=== PATIENT | male | born 1995 ===

== ENCOUNTER 2020-09-10 10:44 | Outpatient (REF) | payer MEDICARE, MEDICAID, SELFPAY | END 2020-09-10 10:45 | disposition home or self-care (01) | LOC: HO.LAB 10:44 | PROVIDERS: PCP Family Medicine; Visit Provider Internal Medicine | DX: Z20.822 Contact with and (suspected) exposure to COVID-19 (principal) | CPT/HCPCS: 36415; C9803; U0003; U0005 ==

== ENCOUNTER 2020-09-20 14:49 | Outpatient (REF) | payer MEDICARE, MEDICAID, SELFPAY | END 2020-09-20 14:50 | disposition home or self-care (01) | LOC: HO.LAB 14:49 | PROVIDERS: Visit Provider Internal Medicine | DX: Z20.822 Contact with and (suspected) exposure to COVID-19 (principal) | CPT/HCPCS: 36415; C9803; U0003; U0005 ==

== ENCOUNTER 2021-01-29 08:16 | Outpatient (REF) | payer MEDICARE, MEDICAID, SELFPAY | END 2021-01-29 08:17 | disposition home or self-care (01) | LOC: HO.LAB 08:16 | PROVIDERS: PCP Family Medicine; Visit Provider Internal Medicine | DX: Z20.822 Contact with and (suspected) exposure to COVID-19 (principal) | CPT/HCPCS: C9803; U0003; U0005 ==

== ENCOUNTER 2024-08-24 08:25 | Emergency (ER) | payer OTHER, SELFPAY ==
--- NOTE | ~2024-08-24 | US_ITS ---
EXAMINATION: US ABDOMEN LIMITED CLINICAL INFORMATION: [Upper Abdominal pain. Cirrhosis.. COMPARISON: None available. TECHNIQUE: Real-time imaging of the right upper quadrant abdominal viscera using grayscale and color Doppler technique. FINDINGS: PANCREAS: No peripancreatic fluid collections. LIVER: Liver measures 17 cm. Increased echotexture. No gross solid or cystic lesion identified by the receiving barn custodian. No intrahepatic biliary ductal dilatation. GALLBLADDER: Contracted. No pericholecystic fluid collection or gallbladder wall thickening. COMMON BILE DUCT: 2 mm diameter. RIGHT KIDNEY: 11 cm. Normal echotexture. Normal renal cortical thickness. No hydronephrosis. No gross solid or cystic lesion. Normal flow on color Doppler interrogation of the renal hilum.. FREE FLUID: None. US/US abdomen limited IMPRESSION: No cholelithiasis. Hepatomegaly and steatosis. Hepatocellular disease/cirrhosis cannot be excluded. No ascites. No hydronephrosis, right kidney. Electronically signed by: Romeo Uribe MD 08/24/2024 12:14 PM [facility]
[2024-08-24 08:32] VITALS: BP 112/79; PULSE 72; RESP 16; TEMP 36.6; O2SAT 98; BMI 29.9
[2024-08-24 09:01] LABS: MANUAL DIFF FLAG NO
[2024-08-24 09:02] LABS: Basophils Percent Auto 0.3 % (0-2); Eosinophils Absolute Auto 0.3 X10*3/uL (0.0-0.4); Eosinophils Percent Auto 2.5 % (0-4); Hematocrit 49.5 % (42.0-52.0); Hemoglobin 17.2 g/dl (14.0-18.0); Imm Gran Abs Auto 0.04 X10*3/uL (0.00-0.03); Imm Gran Pct Auto 0.3 % (0.0-0.4); Lymphocytes Absolute Auto 1.7 X10*3/uL (1.2-4.9); Lymphocytes Percent Auto 14.7 % (20-40); Mean Corpuscular HGB Conc 34.7 g/dl (31.0-36.0); Mean Corpuscular Hemoglobin 29.1 pg (27.0-33.0); Mean Corpuscular Volume 83.6 fL (80.0-98.0); Mean Platelet Volume 9.8 fL (9.4-12.4); Monocytes Absolute Auto 0.8 X10*3/uL (0.1-1.2); Monocytes Percent Auto 6.6 % (2-11); Neutrophils Absolute Auto 8.9 x10*3/uL (2.0-8.3); Neutrophils Percent Auto 75.6 % (45-73); Platelet Count 263 X10*3/uL (160-400); Red Blood Count 5.92 X10*6/uL (4.60-5.80); Red Cell Distribution Width 12.2 % (11.0-16.0); White Blood Count 11.7 X10*3/uL (4.8-10.8)
[2024-08-24 09:16] LABS: Alanine Aminotransferase 105 U/L (0-40); Albumin Level 4.2 g/dL (3.5-5.0); Alkaline Phosphatase 130 U/L (39-117); Anion Gap 10 (12-20); Aspartate Amino Transferase 47 U/L (5-37); Bilirubin Direct 0.2 mg/dL (0.0-0.5); Bilirubin Total 0.7 mg/dL (0.0-1.0); Blood Urea Nitrogen 9 mg/dL (9-16); Calcium 8.6 mg/dL (8.4-10.2); Carbon Dioxide 25 mmol/L (22-29); Chloride 110 mmol/L (96-108); Creatinine Clr Calc Pharmacy 185.4; Estimated Glomerular Filt Rate > 60; Glucose Random 125 mg/dL (60-115); Lipase 20 U/L (8-78); Potassium 4.1 mmol/L (3.3-5.1); Sodium 141 mmol/L (135-145); Total Protein 6.8 g/dL (6.5-8.0)
--- NOTE | 2024-08-24 10:51 | ED.ABDPAIN ---
HPI - Abdominal Pain General Chief Complaint: Abdominal Pain Stated Complaint: Abd pain, vomiting Time Seen by Provider: 08/24/24 10:50 Source: patient Mode of arrival: ambulatory Limitations: no limitations History of Present Illness ED Provider: French Griffin PA-C HPI narrative: 28 yo male history of fatty liver, reported history of liver cirrhosis, anxiety who presents to the ER for evaluation of upper abdominal pain along with recurrent diarrhea and nonbloody vomiting x1. Patient reports symptoms started. He denies any blood in his stool. He had frequent loose bowel movements. No recent travel. He has not been on antibiotics recently. 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 He denies being on any medications for his liver. He reports the pain in his abdomen comes and goes. Pain is cramping in nature. No known sick contacts. No fever or chills. No urinary symptoms. MD elicited complaint: abdominal pain and other (Nausea, vomiting, diarrhea) Pertinent past history: other (Cirrhosis) Onset (ago): hour(s) Pain Consistency: intermittent Location: epigastric Severity: moderate Quality: cramping Radiation: none Migration to: no migration Exacerbating factors: eating Relieving factors: nothing Associated symptoms: nausea, vomiting and diarrhea Related Data Previous Rx's ?Medication ?Instructions ?Recorded ondansetron 4 mg disintegrating 4 mg PO Q8H PRN nausea and 08/24/24 tablet vomiting #7 tabs Allergies Allergy/AdvReac Type Severity Reaction Status Date / Time No Known Allergies Allergy Verified 08/24/24 08:34 [No Known Allergies*] Review of Systems Review of Systems Yes all other systems are reviewed and are negative REPLACED BY [facility] Social History Social History Unable to assess alcohol history related to: Unknown Physical Exam ED Vital Signs: Vital Signs - 24 hr 08/24/24 08:32 08/24/24 14:16 Temperature 97.8 F 98.0 F Pulse Rate 72 80 Respiratory Rate 16 18 Blood Pressure 112/79 138/72 Pulse Oximetry 98 96 Oxygen Delivery Method Room Air Room Air BMI result Body Mass Index 29.9 Appearance: Alert. Oriented X3. No acute distress. Head: normocephalic, atraumatic. Eyes: Pupils equal, round and reactive to light. ENT: Pharynx normal. No tonsillar swelling or exudate. Neck: Normal inspection. Neck supple. CVS: Normal heart rate and rhythm. Pulses normal. Respiratory: No respiratory distress. Breath sounds normal. Abdomen: Soft with mild epigastric tenderness, no guarding or rebound. +BS x4 Skin: Skin warm and dry. Normal skin color. Normal skin turgor. No rashes. Extremities: No lower extremity edema. No joint swelling. Neuro/psych: Oriented X 3. No motor deficit. No sensory deficit. CN II-XII intact. Normal speech and cognition. Medical Decision Making Medical Decision Making [facility] Narrative: 20-year-old male with history of cirrhosis due to fatty liver presents to the ER for evaluation of upper abdominal pain, nausea, vomiting, diarrhea that started at 01:00. No episodes of vomiting or stool output here. Stool studies have been ordered but unable to be collected. His lab work is reassuring with very minimal leukocytosis of 11.7. H and H is stable. LFTs are elevated and we have no baseline here. Abd U/S done showing no obstructive biliary process. hepatic steatosis noted. Patient given GI cocktail and is tolerating PO. no BMs here to send for studies. Most likely viral gastroenteritis. discussed dx and tx. stable for d/c home. Differential Diagnosis Differential Diagnoses: The differential diagnosis associated with the presentation includes Gastroenteritis, pancreatitis, cholecystitis, dehydration, cholangitis, colitis Admission/Observation Consideration of admission/observation: Escalation of care including admission/observation considered Lab Data [facility] Lab Attestation statement: I reviewed the patient's lab results. mild leukocytosis, mild hyperglycemia and elevation of LFTs 08/24/24 08:54 08/24/24 08:54 Labs: Lab Results 08/24/24 08/24/24 Range/Units 08:54 10:55 WBC 11.7 H (4.8-10.8) X10*3/uL RBC 5.92 H (4.60-5.80) X10*6/uL Hgb 17.2 (14.0-18.0) g/dl Hct 49.5 (42.0-52.0) % MCV 83.6 (80.0-98.0) fL MCH 29.1 (27.0-33.0) pg MCHC 34.7 (31.0-36.0) g/dl RDW 12.2 (11.0-16.0) % Plt Count 263 (160-400) X10*3/uL MPV 9.8 (9.4-12.4) fL Immature Gran % (Auto) 0.3 (0.0-0.4) % Neut % (Auto) 75.6 H (45-73) % Lymph % (Auto) 14.7 L (20-40) % [place] % (Auto) 6.6 (2-11) % Eos % (Auto) 2.5 (0-4) % Baso % (Auto) 0.3 (0-2) % Lymph # (Auto) 1.7 (1.2-4.9) X10*3/uL [place] # (Auto) 0.8 (0.1-1.2) X10*3/uL Eos # (Auto) 0.3 (0.0-0.4) X10*3/uL Baso # (Auto) 0.0 (0.0-0.2) X10*3/uL Abs Immat Gran (auto) 0.04 H (0.00-0.03) X10*3/uL Absolute Neuts (auto) 8.9 H (2.0-8.3) x10*3/uL Absolute Nucleated RBC 0.000 (0.0-0.012) X10*3/uL Nucleated RBC % (auto) 0.0 (0.0-0.2) /100WBC Sodium 141 (135-145) mmol/L Potassium 4.1 (3.3-5.1) mmol/L Chloride 110 H (96-108) mmol/L Carbon Dioxide 25 (22-29) mmol/L Anion Gap 10 L (12-20) BUN 9 (9-16) mg/dL Creatinine 0.79 (0.5-1.4) mg/dL Estim Creat Clear Calc 185.4 Estimated GFR > 60 Random Glucose 125 H (60-115) mg/dL Calcium 8.6 (8.4-10.2) mg/dL Total Bilirubin 0.7 (0.0-1.0) mg/dL Direct Bilirubin 0.2 (0.0-0.5) mg/dL AST 47 H (5-37) U/L ALT 105 H (0-40) U/L Alkaline Phosphatase 130 H (39-117) U/L Total Protein 6.8 (6.5-8.0) g/dL Albumin 4.2 (3.5-5.0) g/dL Lipase 20 (8-78) U/L Urine Color Yellow Urine Appearance Clear Urine pH 5.5 (5.0-9.0) Ur Specific [place] 1.025 (1.005-1.025) Urine Protein Negative (Neg-Trace) mg/dL Urine Glucose (UA) Negative (Negative) mg/dL Urine Ketones Negative (Negative) mg/dL Urine Blood Negative (Negative) Urine Nitrite Negative (Negative) Ur Leukocyte Esterase Negative (Negative) Independent Interpretation I performed an independent interpretation of an: Ultrasound Interpretation: no gallstones seen, agree w/ radiology read Radiology Impression Discussion of test interpretation with radiology: I have reviewed the radiologist's reading. Prescription Management I considered prescription management with: Pain Medication Chronic Conditions Patient?s care impacted by: Other (liver cirrhosis) Medications Administered Discontinued Medications Generic Name Dose Route Start Last Admin Trade Name Freq PRN Reason Stop Dose Admin Al Hydroxide/Mg Hydroxide 30 ml 08/24/24 11:23 08/24/24 12:03 Magnesium Hydrox/Alum Hydrox 30 Ml Oral.Susp PO 08/24/24 11:24 30 ml ONCE ONE Administration Belladonna Alkaloids/Phenobarbital 10 ml 08/24/24 11:23 08/24/24 12:03 Phenobarb/Hyoscy/Atropine/Scop 10 Ml Elixir PO 08/24/24 11:24 10 ml ONCE ONE Administration Lidocaine HCl 15 ml 08/24/24 11:23 08/24/24 12:03 Lidocaine Hcl Viscous 2 % 15 Ml Solution MUCOUS MEM 08/24/24 11:24 15 ml ONCE ONE Administration Critical Care Time Critical Care Time Critical Care Time: No Discharge Plan Discharge Clinical Impression: Gastroenteritis Patient Disposition: Home, Self-Care Instructions: Gastroenteritis (DC) Additional Instructions: You lab workup today was unremarkable, aside from elevated liver enzymes which is likely due to your liver disease. Ultrasound showed fatty liver. You most likely have a viral GI bug also known as gastroenteritis. Treatment is supportive care, symptoms usually resolve on their own in 48-72 hours. Recommend rest and plenty of oral hydration. Stick to a bland diet like soup and toast while you are not feeling well. Take the prescribed medication as needed for nausea. Recommend over the counter Pepto Bismol or Imodium for upset stomach and diarrhea. Follow up with your doctor as needed. If you develop new or worsening symptoms call 911 or come back to the ER for further evaluation. Prescriptions: New ondansetron 4 mg tablet,disintegrating 4 mg PO Q8H PRN (Reason: nausea and vomiting) Qty: 7 0RF Stand Alone Forms: Work/School Release Interventions: ED Discharge Assessment Last Done: 08/24/24 14:16 Discharge Date/Time: 08/24/24 14:18 Print Language: Qatari
[2024-08-24 11:07] LABS: Appearance Urine Clear; Color Urine Yellow; Glucose Urine UA Negative (Negative); Leukocyte Esterase Urine Negative (Negative); Nitrite Urine Negative (Negative); PH 5.5 (5.0-9.0); Specific Gravity - Urine 1.025 (1.005-1.025); Urine Blood Negative (Negative); Urine Ketones Negative (Negative); Urine Protein Negative (Neg-Trace)
[2024-08-24] MEDS: Magnesium Hydrox/Alum Hydrox 30 ML ORAL.SUSP PO (12:03)
[2024-08-24] MEDS: Lidocaine HCl Viscous 2 % 15 ML SOLUTION MUCOUS MEM (12:03)
[2024-08-24] MEDS: PHENobarb/Hyoscy/Atropine/Scop 10 ML ELIXIR PO (12:03)
[2024-08-24 14:16] VITALS: BP 138/72; PULSE 80; RESP 18; TEMP 36.7; O2SAT 96
== END 2024-08-24 14:18 | disposition home or self-care (01) ==
PROVIDERS: Emergency Provider Student in an Organized Health Care Education/Training Program
DX: K52.9 Noninfective gastroenteritis and colitis, unspecified (principal); R10.2 Pelvic and perineal pain; R11.2 Nausea with vomiting, unspecified; Z79.899 Other long term (current) drug therapy
CPT/HCPCS: 36415; 76705; 80048; 80076; 81003; 83690; 85025; 99284

== ENCOUNTER → 2024-08-24 11:23 | Outpatient (BNV) | payer OTHER, SELFPAY | PROVIDERS: Emergency Provider Student in an Organized Health Care Education/Training Program; Visit Provider Radiology Diagnostic Radiology | DX: K76.0 Fatty (change of) liver, not elsewhere classified (principal); R16.0 Hepatomegaly, not elsewhere classified | CPT/HCPCS: 76705 ==

== ENCOUNTER 2024-09-06 05:41 | Emergency (ER) | payer OTHER, SELFPAY ==
[2024-09-06 05:43] VITALS: BP 123/87; PULSE 78; RESP 17; TEMP 36.9; O2SAT 97; BMI 29.2
[2024-09-06 05:53] VITALS: BP 150/96; PULSE 77; RESP 16; TEMP 36.4; O2SAT 97
--- OUTSIDE RECORDS SUMMARY | 2024-09-06 06:06 | XMS_ITS | Continuity of Care Document ---
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 No significant ankle joint OA X-rays of the right foot were previously interpreted demonstrating no fracture. Mild midfoot OA MRI of the right foot was previously interpreted demonstrating edema of the cuboid bone consistent with a stress injury. Possible hypointense fracture line on T2 and T1 images that does not cross the cortex. Lesser edema of the medial cuneiform and navicular bone also noted without fracture line seen. Not available 09/04/2024 10:07:44 Plan of Treatment Reminders Order Date Submit Date Provider Last Modified By Organization Details Last Modified Time Details Appointments Follow Up, 2024 09:30A Sushant MATOS DNP Not available Not available Not available Lab None recorded . Referral None recorded . Procedures None recorded . Surgeries None recorded . Imaging None recorded . Medication Orders None recorded . Patient TargetsNo targets recorded. Patient Instructions Encounter Date Encounter Id Patient Instructions Last Modified By Organization Details Last Modified Time 09/04/2024 [id number] Gradually wean o ut of boot over 1 week You can be full weightbearing No lower extremity exercise or high impact activity Follow-up in 4 weeks for a recheck Not available 09/04/2024 10:38:07 All of the patients questions were answered and they understand the plan of care. Thank you for allowing me to participate in the care of your patient. ? ? ?Please feel free to contact me with any questions regarding their care. Not available 09/04/2024 10:36:37 Reason for Referral None Reported. Problems Name Problem SNOMED Code Status Onset Date Resolution Date Notes Provider Name and Address Organization Details Recorded Time Joint pain in ankle and foot Completed 06/28/2013 Not Available [facility] 3 02:01:27 Acne 25325692 Active Not Available [facility] 3 03:34:36 Allergic rhinitis 91602815 Active Deejay Lizama MD [address] [place] [address], , [facility] 5 15:26:56 Asthma 402006592 Active Deejay Lizama MD [address] [place] [address], , [facility] 6 21:16:42 Constipa tion by outlet obstruct ion 70376688 Active Deejay Lizama MD [address] [place] [address], , [facility] 5 15:26:56 Shoulder joint pain 743406541 Active Sheyla ortiz, PT [address] [place], [place], , [facility] 6 10:59:58 Thoracic back pain 934238478 Active Sheyla ortiz, PT [address] [place], [place], , [facility] 6 10:59:58 Mild persiste nt asthma 339845389 Active 2022 Geno Louis PA-C [address] [place] [address], , [facility] 3 13:59:03 Prematur e infant 412015263 Active 2022 born very prematur e; ? in utero heart attack Geno Louis PA-C [address] [place] [address], , [facility] 3 14:12:00 Liver enzymes level above referenc e range 288190148 Active 2022 Geno Louis PA-C [address] [place] [address], , [facility] 3 14:14:42 Hepatome raul 24544594 Active 2022 Geno Louis PA-C [address] [place] [address], , [facility] 3 11:21:19 Serum ferritin above referenc e range 400210302 Active 2022 Geno Louis PA-C [address] [place] [address], , [facility] 3 11:21:20 Steatosi s of liver 420442855 Active 2022 Geno Louis PA-C [address] [place] [address], , [facility] 3 11:21:22 Non-alco holic fatty liver disease Active 2023 Geno Louis PA-C [address] [place] [address], , [facility] 4 18:32:07 Hepatic fibrosis 94370220 Active 2023 Geno Louis PA-C [address] [place] [address], , [facility] 4 18:32:10 Chronic ankle pain 36596009479 109 Active 2023 Geno Louis PA-C [address] [place] [address], , [facility] 4 18:32:15 Stress fracture of right foot 34215681237 751169 Active 2024 per sports medicine consult notes RANDALL MATOS DNP [address] [place] [address], , [facility] 5 14:02:48 Problem Notes None recorded. Procedures Surgical History Date Name Laterality Status Provider Name and Address Organization Details Recorded Time 05/30/20 67197: Manual Therapy completed MANPREET CAMPBELL, PT, DPT [address] [place], [address], [facility] 05/30/2024 13:51:09 05/30/20 Treatment and Advice completed MANPREET CAMPBELL, PT, DPT [address] [place], [address], [facility] 05/30/2024 12:53:15 05/10/20 13946: Therapeutic Exercise completed MANPREET CAMPBELL PT, DPT [address] [place], [address], [facility] 05/10/2024 11:05:38 05/10/20 Neuromuscular re-education completed MANPREET CAMPBELL PT, DPT [address] [place], [address], [facility] 05/10/2024 11:05:22 05/10/20 Treatment and Advice completed MANPREET CAMPBELL, PT, DPT [address] [place], [address], [facility] 05/10/2024 10:26:17 05/08/20 Medicare Wellness Visit completed Cecilia Peres [facility] 05/08/2024 13:55:22 05/03/20 77045: Manual Therapy completed MANPREET CAMPBELL, PT, DPT [address] [place], [address], [facility] 05/03/2024 11:37:26 05/03/20 Treatment and Advice completed MANPREET CAMPBELL, PT, DPT [address] [place], [address], [facility] 05/03/2024 11:32:22 04/27/20 35418: Therapeutic Exercise completed MANPREET CAMPBELL, PT, DPT [address] [place], [address], [facility] 04/27/2024 12:17:15 04/27/20 99253: Neuromuscular Re-Education completed MANPREET CAMPBELL, PT, DPT [address] [place], [address], [facility] 04/27/2024 12:16:38 04/27/20 24 Treatment and Advice completed MANPREET CAMPBELL, PT, DPT [address] [place], [address], [facility] 04/27/2024 12:18:12 03/29/20 24 68446: Therapeutic Exercise completed MANPREET CAMPBELL PT, DPT [address] [place], [address], [facility] 03/29/2024 11:26:43 03/29/20 24 Treatment and Advice completed MANPREET CAMPBELL PT, DPT [address] [place], [address], [facility] 03/29/2024 10:41:49 03/03/20 21 Physical Activity Counselling completed Bonny Griggs PT [address] [place], [address], [facility] 03/03/2021 09:27:32 09/20/19 21 Asthma Control Test (12 + years old) completed Amanda Sandra MA [facility] 09/20/2020 13:43:42 09/03/19 21 Video Visit completed Ai Luis MA [facility] 09/03/2020 11:19:36 09/03/19 21 Asthma Control Test (12 + years old) completed Ai Luis MA [facility] 09/03/2020 11:19:33 03/25/20 20 prevention-cardio vascular risk reduction counseling completed Kath Sylvester LPN [facility] 03/25/2020 15:49:00 03/25/20 20 prevention-annual alcohol misuse screening completed Kath Sylvester LPN [facility] 03/25/2020 15:49:01 03/25/20 20 Asthma Control Test (12 + years old) completed Kath Sylvester LPN [facility] 03/25/2020 16:26:18 03/25/20 20 Medicare Annual Wellness Visit completed Kath Sylvester LPN [facility] 03/25/2020 15:49:00 06/16/20 19 Smoking cessation counseling completed Deejay Lizama MD [address] [place], [address], [facility] 06/16/2019 11:42:23 06/16/20 19 Carbon Monoxide Testing completed Karma Lr [facility] 06/16/2019 10:34:56 04/13/20 19 Refraction completed Andrea Monroy [facility] 04/13/2019 08:29:20 03/24/20 19 Asthma Control Test (12 + years old) completed Caitlyn Raza [facility] 03/24/2019 14:59:55 09/05/19 19 25819: Therapeutic Exercise completed Daniel Nova, PT [address] [place], [address], [facility] 09/05/2018 14:57:10 09/05/19 19 Treatment and Advice completed Daniel Nova, PT [address] [place], [address], [facility] 09/05/2018 14:56:03 08/22/19 19 00409: Therapeutic Exercise completed Daniel Nova, PT [address] [place], [address], [facility] 08/22/2018 14:59:41 08/22/19 19 Treatment and Advice completed Daniel Nova, PT [address] [place], [address], [facility] 08/22/2018 14:57:29 07/21/20 18 47037: Therapeutic Exercise completed Daniel Nova, PT [address] [place], [address], [facility] 07/23/2018 07:15:02 07/21/20 18 Treatment and Advice completed Daniel Nova, PT [address] [place], [address], [facility] 07/21/2018 12:32:54 07/14/20 18 Physical Activity Counselling completed Daniel Nova, PT [address] [place], [address], [facility] 07/14/2018 12:33:29 07/14/20 18 26457: PT Eval Low Complexity completed Daniel Nova, PT [address] [place], [address], [facility] 07/14/2018 12:33:29 07/14/20 18 Treatment and Advice completed Daniel Nova, PT [address] [place], [address], [facility] 07/14/2018 12:34:57 06/03/20 16 Refraction completed Za Manmaribell [facility] 06/03/2016 14:42:36 08/23/19 16 30209: PT Evaluation completed Sheyla Chao, PT [address] [place], [address], [facility] 08/23/2015 10:59:58 08/23/19 16 Treatment and Advice completed Sheyla Chao, PT [address] [place], [address], [facility] 08/23/2015 10:42:23 08/16/19 16 Asthma Control Test (12 + years old) completed Alysia Jaffe MA [facility] 08/16/2015 14:57:15 01/22/20 15 Wart completed Deejay Lizama MD [address] [place] [address], [address], [facility] 01/21/2015 18:25:04 05/30/20 12 Asthma Control Test (12 + years old) completed Deejay Lizama MD [address] [place] [address], [address], [facility] 05/30/2012 22:38:00 05/21/20 12 Nebulizer Tx completed Jaxon Jameson MD [address] [place] [address], [address], [facility] 05/22/2012 20:12:20 Imaging Results None recorded. Procedure Notes None recorded. Medical Equipment None Reported. Allergies No known drug allergies Medications Name Sig Start Date Stop Date Status Note LastModified by Organization Details LastModified Time cyclobenza mery 10 mg tablet TAKE 1 TABLET BY MOUTH EVERY DAY AT BEDTIME NEEDED 12/21 completed Not Available Not Available Not Available doxycyclin e hyclate 100 mg capsule TK 1 C PO Q 12 H FOR 7 DAYS 08/22 completed not taking 08/22/19 MS Not Available Not Available Not Available azithromyc in 250 mg tablet TAKE 2 TABLETS (500 MG) BY ORAL ROUTE ONCE DAILY FOR 1 DAY THEN 1 TABLET (250 MG) BY ORAL ROUTE ONCE DAILY FOR 4 DAYS 02/21 completed 09/20/20 SC not taking Not Available Not Available Not Available ibuprofen 800 mg tablet TAKE 1 TABLET BY MOUTH THREE TIMES DAILY WITH MEALS FOR 7 DAYS THEN 1 TABLET BY MOUTH THREE TIMES DAILY NEEDED 12/21 completed Not Available Not Available Not Available famotidine 40 mg tablet TAKE 1 TABLET BY MOUTH TWICE DAILY active Not Available Not Available No t Available prednisone 20 mg tablet Take 3 tablets po every day for 3 days then 2 tabs for 3 days then 1 tab daily for 3 days 2011 active Not Available Not Available Not Avai lable Doc-Q-Lace 100 mg capsule TAKE ONE CAPSULE BY MOUTH TWICE DAILY NEEDED 02/25 completed Not Available Not Available Not Available VoSol-HC 1 %-2 % ear drops Instill 2 drops 4 times a day by otic route for 7 days. 03/07 completed Not Available Not Available Not Available sumatripta n 50 mg tablet TAKE 1 TABLET BY MOUTH AT ONSET OF MIGRAINE NEEDED. MAY REPEAT DOSE IN 2 HOURS. NO MORE THAN 2 DOSES IN 24 HOUR PERIOD active Not Available Not Available No t Available benzonatat e 100 mg capsule TK 1 C PO TID PRN 06/16 completed Not Available Not Available Not Available cephalexin 500 mg capsule TAKE 1 CAPSULE BY MOUTH EVERY 8 HOURS FOR 5 DAYS 05/04 completed Not Available Not Available Not Available Cortispori n 3.5 mg/mL-10,0 00 unit/mL-1 % ear solution Instill 4 drops 3 times a day by otic route. 2013 active Not Available Not Available Not Avai lable bisacodyl 5 mg tablet,del ayed release Take 2 tablets every day by oral route as needed. 02/25 completed Not Available Not Available Not Available ibuprofen 600 mg tablet TK 1 T PO Q 6 H PRN P 04/23 completed Not Available Not Available Not Available fluticason e propionate 50 mcg/actuat ion nasal spray,susp ension SHAKE LIQUID AND USE 1 SPRAY IN EACH NOSTRIL EVERY DAY active Not Available Not Available No t Available Ventolin HFA 90 mcg/actuat ion aerosol inhaler INHALE 2 PUFFS BY MOUTH EVERY 4 TO 6 HOURS NEEDED FOR SHORTNES S OF BREATH active Not Available Not Available No t Available oxycodone 5 mg tablet TAKE 1 TABLET BY MOUTH EVERY 4 HOURS NEEDED FOR PAIN 05/04 completed Not Available Not Available Not Available Tessalon Perle 100 mg capsule Take 1 capsule 3 times a day by oral route as needed. 11/26 completed Not Available Not Available Not Available erythromyc in with ethanol 2 % topical gel Apply 1 applicat ion twice a day by topical route. 2012 active Not Available Not Available Not Avai lable Systane (propylene glycol) 0.4 %-0.3 % eye drops 1 drop into each eye 2-4 times per day 01/10 completed not taking 08/22/19 MS Not Available Not Available Not Available Flovent HFA 110 mcg/actuat ion aerosol inhaler INHALE 1 PUFF BY MOUTH TWICE DAILY active Not Available Not Available No t Available Rezdiffra 100 mg tablet 1 po QD active Not Available Not Available Not Available Vitals Date Recorded Body height Provider Name an d Address Organization Details Last Updated DateTime 09/04/2024 187.33 cm Eda Duckworth MA [facility] 09/04/2024 10:01:09 Date Recorded Systolic blood pressure Diastolic blood pressure Provider Name and Address Organization Details Last Updated DateTime 09/04/2024 114 mm[Hg] 64 mm[Hg] Eda Duckworth MA [facility] 09/04/2024 10:04:33 Social History Question Answer Notes LastModified by Organizat ion Details LastModified Time Tobacco Smoking Status [facility] 15:46:29 What Is Your Level Of Alcohol Consumption? Occasional Special Occasions 1-3 Drinks Information not available 04/28/2022 Do You Wear A Helmet When Biking? No [email or web address] Information not available 04/23/2021 What Is Your Level Of Caffeine Consumption? Moderate Energy Drinks Information not available 04/28/2022 How Much Tobacco Do You Chew? None Information not available 05/21/2012 Are You Currently Employed? Yes Information not available 04/28/2022 What Type Of Diet Are You Following? REGULAR [email or web address] Information not available 04/23/2021 Which Illicit Or Recreational Drugs Have You Used? Never Information not available 05/30/2012 Do You Or Have You Ever Used E-cigarettes Or Vape? Former User Of Electronic Cigarettes Information not available 03/24/2019 Education 12 Informat ion not available 03/12/2015 What Is The Highest Grade Or Level Of School You Have Completed Or The Highest Degree You Have Received? 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 No Information not available 04/28/2022 Are There Any Guns Present In Your Home? No Information not available 12/15/2012 Do You Use Insect Repellent Routinely? No Information not available 04/28/2022 Live Alone Or With Others? With Others Mother And Two Siblings Information not available 05/30/2012 Does The Patient Have Difficulty Speaking Slovenian? No Information not available 05/30/2012 Does The Patient Have Difficulty Reading Slovenian? No Information not available 05/30/2012 Patient Has Health Care Proxy Signed And In Chart Yes [email or web address] Information not available 03/27/2019 Marital Status Single Informatio n not available 05/21/2012 Mosquito Repellent Used Routinely No Information not available 05/30/2012 What Was The Date Of Your Most Recent Tobacco Screening? 05/08/2024 [email or web address] Information not available 05/08/2024 How Many Children Do You Have? 0 [email or web address] Information not available 11/26/2017 What Is Your Relationship Status? Other Partner But Doesnt Live Together [email or web address] Information not available 05/04/2023 Do You Use Your Seat Belt Or Car Seat Routinely? Yes [email or web address] Information not available 04/23/2021 Seat Belts Used Routinely Yes [email or web address] Information not available 03/25/2020 Are You Sexually Active? No Information not available 03/24/2019 Smoke Alarm In Home Yes Information not available 05/30/2012 Do You Have Smoke And Carbon Monoxide Detectors In Your Home? Yes Information not available 04/23/2021 Are You Passively Exposed To Smoke? No [email or web address] Information not available 04/23/2021 Do You Or Have You Ever Used Smokeless Tobacco? Never Used Smokeless Tobacco [email or web address] Information not available 06/16/2019 How Much Tobacco Do You Smoke? No [email or web address] Information not available 01/11/2020 What Types Of Sporting Activities Do You Participate In? Volleyball Information not available 03/24/2019 General Stress Level Medium Information not available 03/24/2019 Do You Use Any Illicit Or Recreational Drugs? No Information not available 04/28/2022 Do You Use Sunscreen Routinely? No Information not available 05/30/2012 Do You Or Have You Ever Used Any Other Forms Of Tobacco Or Nicotine? No Information not available 04/28/2022 How Many Days In The Past Year Have You Consumed 5 Or More Drinks? 0 Information not available 04/28/2022 Sex: Male Functional Status Question Answer Note LastModified by Organizat ion Details LastModified Time What is your exercise level? None recent back surgery [email or web address] Information not available 05/04/2023 Mental Status None recorded. Family History Relationship Description Onset Age of this Age Resolved Age Notes LastModified by Organization Details LastModified Time Paternal Grandmother Malignant neoplasm of liver [email or web address] Not available 2022 14:03:38 Mother Diabetes mellitus [email or web address] Not available 2022 14:03:56 Father Diabetes mellitus also grandp arents on both side [email or web address] Not available 05/04/2023 14:04:27 Father Transplantat ion of liver [email or web address] Not available 18:19:41 Medical History No medical history recorded. Immunizations Vaccine Type Date Status Note Provider Nam e and Address Organization Details Recorded Time Influenza, split virus, trivalent, preservative 2 completed Not Available [email or web address] 08/26/2019 02:28:48 Tdap 3 completed Not Available [facility] 08/26/2019 02:16:05 meningococcal MCV4P 3 completed Not Available [facility] 08/26/2019 02:15:00 HPV, quadrivalent 5 completed Not Available [facility] 08/26/2019 02:19:47 HPV9 5 completed Not Available [facility] 08/26/2019 02:20:10 HPV9 6 completed Not Available [facility] 08/26/2019 02:20:17 Influenza, split virus, quadrivalent, PF 6 completed Not Available [facility] 08/26/2019 02:29:50 Influenza, split virus, quadrivalent, PF 8 completed Not Available [facility] 08/26/2019 02:23:06 pneumococcal polysaccharide PPV23 9 completed Not Available [facility] 08/26/2019 02:37:59 Influenza, split virus, quadrivalent, PF 9 completed Not Available [facility] 08/26/2019 02:34:18 Hep B, adult 2 completed Ortiz Clay RN [facility], [facility] 03/31/2022 11:01:48 Hep B, adult 2 completed Geno Louis PA-C [address] [place] [address], [address], [facility] 04/28/2022 16:17:09 Td (adult), 2 Lf tetanus toxoid, preservative free, adsorbed 3 completed Geno Louis PA-C [address] [place] [address], [address], [facility] 05/04/2023 14:14:56 Influenza, split virus, quadrivalent, PF 3 completed Geno Louis PA-C [address] [place] [address], [address], [facility] 05/04/2023 14:14:56 COVID-19, mRNA, LNP-S, PF, 100 mcg/0.5mL dose or 50 mcg/0.25mL dose 1 completed Veronique Gustafson RMA null, [facility] 06/20/2024 16:43:14 COVID-19, mRNA, LNP-S, PF, 100 mcg/0.5mL dose or 50 mcg/0.25mL dose 1 completed Veronique Gustafson RMA null, [facility] 06/20/2024 16:43:14 Influenza, split virus, trivalent, PF 4 completed Geno Louis PA-C [address] [place] [address], [address], [facility] 05/09/2024 12:41:45 varicella 2 completed [facility] 16:43:14 MMR 2 completed Veronique Gustafson RMA null, [facility] 06/20/2024 16:43:14 MMR 2 completed Veronique Gustafson RMA null, [facility] 06/20/2024 16:43:14 varicella 2 completed Veronique Gustafson RMA null, [facility] 06/20/2024 16:43:14 COVID-19, mRNA, LNP-S, PF, 100 mcg/0.5mL dose or 50 mcg/0.25mL dose 1 completed [facility] 16:43:14 Past Encounters Encounter ID Performer Location Encounter Start Date Encounter Closed Date Diagnosis/Indication Diagnosis SNOMED-CT Code Diagnosis ICD10 Code Diagnosis Note [id number] Danis Leach MD Sports Medicine, [address] [address] 09/04/2024 09:50:50 09/04/2024 12:10:37 Pain in right foot [id number] 13064 M79.671 Niles is a 28-year-ol d male with right foot pain due to a stress fracture of the cuboid bone. He has been wearing a Cam walker boot for 4 weeks and has had a significan t reduction in his pain and symptoms. I have advised at this time that he can gradually wean out of the boot over the next week to full weightbear ing status. I have advised against any lower extremity exercise or impact activities . He will plan to follow up with me in 4 weeks for reevaluati on and will contact me if he develops any increasing pain before then. Stress fra cture of foot [id number] M84.374D Health Concerns Section Related Observation LastModified by Organization Detai ls LastModified Time None Recorded Concern Status LastModified by Organization Details LastModified Time None Recorded Payers Encounter Date Sequence Insurance Name Policy Number Policy Cherry Covered Member ID Cherry Member ID Guarantor Name 09/04/2024 1 [facility] - DOS ON OR AFTER 2022 - ONE CARE (MEDICARE REPLACEMENT/ADV ANTAGE - HMO) Niles Bryant [id number] Niles Bryant Notes Date Note Type Note Provider Name and Address Organization Details Recorded Time 09/04/2024 text/html Niles is a 28-year-old male who presents today for reevaluation of right foot pain. He was last seen via virtual visit on July 312023. Since then he has been wearing a Cam walker boot when weightbearing. Overall his foot is feeling significantly better with much less pain. He has no pain with walking in the boot. He has at the boot off for short periods of time at home and has not had discomfort with weightbearing. He no longer is having any night pain. Danis Leach MD [address] [place] [address], [phone], [facility] 09/04/2024 10:38:33
[2024-09-06 06:16] LABS: MANUAL DIFF FLAG NO
[2024-09-06 06:21] LABS: Basophils Absolute Auto 0.1 X10*3/uL (0.0-0.2); Basophils Percent Auto 0.6 % (0-2); Eosinophils Absolute Auto 0.5 X10*3/uL (0.0-0.4); Eosinophils Percent Auto 5.5 % (0-4); Hematocrit 47.9 % (42.0-52.0); Hemoglobin 16.9 g/dl (14.0-18.0); Imm Gran Abs Auto 0.02 X10*3/uL (0.00-0.03); Imm Gran Pct Auto 0.2 % (0.0-0.4); Lymphocytes Absolute Auto 2.4 X10*3/uL (1.2-4.9); Lymphocytes Percent Auto 27.7 % (20-40); Mean Corpuscular HGB Conc 35.3 g/dl (31.0-36.0); Mean Corpuscular Hemoglobin 29.4 pg (27.0-33.0); Mean Corpuscular Volume 83.3 fL (80.0-98.0); Mean Platelet Volume 9.9 fL (9.4-12.4); Monocytes Absolute Auto 0.9 X10*3/uL (0.1-1.2); Neutrophils Absolute Auto 4.9 x10*3/uL (2.0-8.3); Platelet Count 250 X10*3/uL (160-400); Red Blood Count 5.75 X10*6/uL (4.60-5.80); Red Cell Distribution Width 12.1 % (11.0-16.0); White Blood Count 8.7 X10*3/uL (4.8-10.8)
[2024-09-06 06:30] LABS: Alanine Aminotransferase 113 U/L (0-40); Albumin Level 4.3 g/dL (3.5-5.0); Alkaline Phosphatase 125 U/L (39-117); Anion Gap 11 (12-20); Aspartate Amino Transferase 57 U/L (5-37); Bilirubin Total 0.4 mg/dL (0.0-1.0); Blood Urea Nitrogen 9 mg/dL (9-16); Calcium 8.6 mg/dL (8.4-10.2); Carbon Dioxide 21 mmol/L (22-29); Chloride 112 mmol/L (96-108); Creatinine Clr Calc Pharmacy 193.2; Estimated Glomerular Filt Rate > 60; Glucose Random 112 mg/dL (60-115); Potassium 3.9 mmol/L (3.3-5.1); Sodium 140 mmol/L (135-145); Total Protein 7.2 g/dL (6.5-8.0)
--- NOTE | 2024-09-06 06:45 | ED_ITS ---
HPI - General Adult General Chief complaint: Nausea/Vomiting/Diarrhea Stated complaint: abd pain, vomiting, diar Time Seen by Provider: 09/06/24 06:40 Source: patient Mode of arrival: ambulatory Limitations: no limitations History of Present Illness ED Provider: Prachi Caraballo Pa-C HPI narrative: Patient is a 28 year old assigned male at with a history of GERD presenting to the emergency department today with nausea, vomiting, diarrhea, and epigastric pain. Patient states that starting yesterday he began to have nausea, vomiting, and diarrhea with some epigastric area burning. Patient denies any dizziness, lightheadedness, fever, chills, blurry vision, double vision, loss of vision, chest pain, difficulty breathing, shortness of breath, back pain, night sweats, pain with urination, increased urinary frequency, increased urinary urgency, blood in his urine or stool, syncope or a near syncopal episode, recent trauma or falls, bowel incontinence, bladder incontinence, or any other complaints at this time. Location: abdomen Relieving factors: none Exacerbating factors: none Associated symptoms: nausea/vomiting Treatments prior to arrival: none Related Data Previous Rx's ?Medication ?Instructions ?Recorded ondansetron 4 mg disintegrating 4 mg PO Q8H PRN nausea and 08/24/24 tablet vomiting #7 tabs Allergies Allergy/AdvReac Type Severity Reaction Status Date / Time No Known Allergies Allergy Verified 09/06/24 05:45 [No Known Allergies*] Review of Systems 2 Constitutional: Constitutional: Reports no additional constitutional complaints, Denies chills, Denies fever(s) and Denies night sweats Eyes: Eyes: Reports no additional eye complaints, Denies blurry vision, Denies change in vision, Denies diplopia, Denies eye discharge, Denies loss of vision and Denies eye pain ENT: Denies dizziness Cardiovascular: Cardiovascular: Reports no additional cardiovascular complaints, Denies chest pain, Denies lightheadedness, Denies Loss of Consciousness and Denies dyspnea Respiratory: Respiratory: Reports no additional respiratory complaints and Denies dyspnea Gastrointestinal: Gastrointestinal: Reports no additional gastrointestinal complaints, Reports abdominal pain, Denies melena, Denies hematochezia, Reports change in bowel habits, Reports change in stool character, Reports diarrhea, Reports nausea and Reports vomiting Genitourinary: Genitourinary: Reports no additional male genitourinary complaints, Denies hematuria, Denies oliguria, Denies difficulty urinating, Denies dysuria, Denies urinary frequency, Denies urinary hesitancy, Denies urinary incontinence and Denies urinary urgency Musculoskeletal: Musculoskeletal: Reports no additional musculoskeletal complaints, Denies numbness and Denies tingling Neurologic: Denies dizziness, Denies loss of vision, Denies numbness and Denies tingling Psychiatric: Psychiatric: Reports no additional psychiatric complaints Endocrine: Endocrine: Reports no additional endocrine complaints Hematologic/Lymphatic: Hematologic/Lymphatic: Reports no additional hematologic/lymphatic complaints Allergic/Immunologic: Allergic/Immunologic: Reports no additional allergic/immunologic complaints [facility], [facility] Past Medical History Attestation statement: The following information was validated with the patient. Source: old records reviewed and nursing notes reviewed Social History Social History Unable to assess alcohol history related to: Unknown Smoked in Last 30 Days: No Use of substances other than those prescribed or required for medical reasons: No Advance Directives: No Advance Directives Information Provided: Yes Do you have a plan to hurt others: No Plan Physical Exam ED Vital Signs: Vital Signs - 24 hr 09/06/24 05:43 09/06/24 05:53 09/06/24 08:00 Temperature 98.5 F 97.6 F 97.9 F Pulse Rate 78 77 68 Respiratory Rate 17 16 18 Blood Pressure 123/87 150/96 H 130/78 Pulse Oximetry 97 97 95 Oxygen Delivery Method Room Air Room Air Room Air 09/06/24 09:25 Temperature 97.9 F Pulse Rate 73 Respiratory Rate 18 Blood Pressure 137/86 Pulse Oximetry 97 Oxygen Delivery Method Room Air BMI result Body Mass Index 29.2 Const General: cooperative, no acute distress, alert and awake Nutritional Appearance: well nourished Orientation/consciousness: patient oriented x3 Limitations: no limitations HENMT Head: Yes normal to inspection and Yes atraumatic Ears: hearing grossly normal bilaterally and external ears normal General nose exam: Normal external nose present, no nasal discharge noted and no epistaxis Face and sinus: Yes normal facial exam, No abrasion and No laceration Mouth: Normal oral and palatal mucosa present, no drooling and no muffled voice Eyes General: appearance normal, both eyes and all related structures Periorbital: periorbital findings normal Eyelids: Yes eyelids normal Conjunctivae: conjunctivae normal Pupils: Equal, round and reactive pupils present EOM: EOMs intact bilaterally Neck Neck: Yes normal visual inspection, Yes full ROM and Yes no lymphadenopathy Chest Chest palpation & inspection: normal inspection of the chest Resp Effort & Inspection: normal respiratory effort and able to speak in complete sentences GI Inspection: Yes normal to inspection Neuro General: patient oriented x3 and moves all extremities Cranial nerves: Yes Equal, round and reactive pupils present Cognition (Neuro): normal cognition Extrem General: Yes normal to inspection, Yes full ROM and Yes capillary refill normal Psych Appearance: grossly normal Mental Status: mental status grossly normal Affect: normal affect Attitude: cooperative Thought process: Normal thought process present Thought content: Normal thought content present Insight: Good insight present (Psych) Medications Administered Discontinued Medications Generic Name Dose Route Start Last Admin Trade Name Freq PRN Reason Stop Dose Admin Al Hydroxide/Mg Hydroxide 15 ml 09/06/24 06:45 09/06/24 07:16 Magnesium Hydrox/Alum Hydrox 30 Ml Oral.Susp PO 09/06/24 06:46 15 ml ONCE ONE Administration Sodium Chloride 1,000 mls @ 999 mls/hr 09/06/24 06:45 09/06/24 07:15 Ns IV 09/06/24 07:45 999 mls/hr .Q1H1M RAMIRO Administration Ondansetron HCl 4 mg 09/06/24 06:45 09/06/24 07:15 Ondansetron Hcl 4 Mg/2 Ml Vial IVPUSH 09/06/24 06:46 4 mg ONCE ONE Administration Pantoprazole Sodium 40 mg 09/06/24 06:45 09/06/24 07:15 Pantoprazole Sodium 40 Mg/10 Ml Vial IVPUSH 09/06/24 06:46 40 mg ONCE ONE Administration Medical Decision Making Medical Decision Making MDM Narrative: Patient is a 28 year old assigned male at with a history of GERD presenting to the emergency department today with nausea, vomiting, diarrhea, and epigastric pain. Patient's physical exam was unremarkable. Patient's blood work was unremarkable. Patient's urine showed no acute process. I explained my physical exam findings as well as all test results to the patient. I answered all questions asked by the patient. Patient received IV protonix and fluids with PO Maalox which, upon re-evaluation, he stated it helped his pain some. I stressed the importance of the patient taking his medication as directed (either prescribed or as the over the counter packaging recommends). I stressed the importance of the patient following up with his primary care provider. I stressed the importance of the patient returning to the emergency department immediately if his symptoms were to worsen or if he were to develop any dizziness, shortness of breath, difficulty breathing, chest pain, blurry vision, loss of vision, nausea, vomiting, abdominal pain, fever, chills, back pain, or any other complaints. Patient verbalized agreement and understanding with this treatment plan and discharge. Differential Diagnosis Differential Diagnoses: The differential diagnosis associated with the presentation includes Epigastric pain Nausea Vomiting Diarrhea Gastroenteritis Admission/Observation Consideration of admission/observation: Escalation of care including admission/observation considered Patient would have been admitted to the hospital had his work up had any findings where hospital admission was appropriate and his clinical presentation warranted hospital admission. Lab Data [facility] Lab Attestation statement: I reviewed the patient's lab results. My interpretation of these results are in the [facility] Rationale portion of this note. 09/06/24 06:12 09/06/24 06:12 Labs: Lab Results 09/06/24 09/06/24 09/06/24 Range/Units 06:09 06:12 07:06 WBC 8.7 (4.8-10.8) X10*3/uL RBC 5.75 (4.60-5.80) X10*6/uL Hgb 16.9 (14.0-18.0) g/dl Hct 47.9 (42.0-52.0) % MCV 83.3 (80.0-98.0) fL MCH 29.4 (27.0-33.0) pg MCHC 35.3 (31.0-36.0) g/dl RDW 12.1 (11.0-16.0) % Plt Count 250 (160-400) X10*3/uL MPV 9.9 (9.4-12.4) fL Immature Gran % (Auto) 0.2 (0.0-0.4) % Neut % (Auto) 56.0 (45-73) % Lymph % (Auto) 27.7 (20-40) % [place] % (Auto) 10.0 (2-11) % Eos % (Auto) 5.5 H (0-4) % Baso % (Auto) 0.6 (0-2) % Lymph # (Auto) 2.4 (1.2-4.9) X10*3/uL [place] # (Auto) 0.9 (0.1-1.2) X10*3/uL Eos # (Auto) 0.5 H (0.0-0.4) X10*3/uL Baso # (Auto) 0.1 (0.0-0.2) X10*3/uL Abs Immat Gran (auto) 0.02 (0.00-0.03) X10*3/uL Absolute Neuts (auto) 4.9 (2.0-8.3) x10*3/uL Absolute Nucleated RBC 0.000 (0.0-0.012) X10*3/uL Nucleated RBC % (auto) 0.0 (0.0-0.2) /100WBC Sodium 140 (135-145) mmol/L Potassium 3.9 (3.3-5.1) mmol/L Chloride 112 H (96-108) mmol/L Carbon Dioxide 21 L (22-29) mmol/L Anion Gap 11 L (12-20) BUN 9 (9-16) mg/dL Creatinine 0.77 (0.5-1.4) mg/dL Estim Creat Clear Calc 193.2 Estimated GFR > 60 Random Glucose 112 (60-115) mg/dL Calcium 8.6 (8.4-10.2) mg/dL Magnesium 1.9 (1.6-2.6) mg/dL Total Bilirubin 0.4 (0.0-1.0) mg/dL AST 57 H (5-37) U/L ALT 113 H (0-40) U/L Alkaline Phosphatase 125 H (39-117) U/L Total Protein 7.2 (6.5-8.0) g/dL Albumin 4.3 (3.5-5.0) g/dL Urine Color Yellow Urine Appearance Clear Urine pH 5.5 (5.0-9.0) Ur Specific [place] 1.025 (1.005-1.025) Urine Protein Negative (Neg-Trace) mg/dL Urine Glucose (UA) Negative (Negative) mg/dL Urine Ketones Negative (Negative) mg/dL Urine Blood Negative (Negative) Urine Nitrite Negative (Negative) Ur Leukocyte Esterase Negative (Negative) Stl C. cayetanensis PCR Not Detected (Not Detect.) Stool Rotavirus A PCR Not Detected (Not Detect.) Stl Adenov F 40/41 PCR Not Detected (Not Detect.) Stool Astrovirus (PCR) Not Detected (Not Detect.) Stool Campylobacter PCR Not Detected (Not Detect.) Stool Cryptosporidium PCR Not Detected (Not Detect.) Stl Sh Tox Pr E STEC PCR Not Detected (Not Detect.) Stool E coli O157 PCR Not applicable (Not Detect.) Stl Enterotoxigenic E PCR Not Detected (Not Detect.) Stool EPEC (PCR) Not Detected (Not Detect.) Stool EAEC (PCR) Not Detected (Not Detect.) Stl E. histolytica PCR Not Detected (Not Detect.) Stool Giardia Lamblia PCR Not Detected (Not Detect.) Stl P. shigelloides PCR Not Detected (Not Detect.) Stool Salmonella PCR Not Detected (Not Detect.) Stool Sapovirus (PCR) Not Detected (Not Detect.) Stl Shigella/EIEC PCR Not Detected (Not Detect.) St Y.enterocolitica PCR Not Detected (Not Detect.) Stool Vibrio (PCR) Not Detected (Not Detect.) Stl Vibrio cholerae PCR Not Detected (Not Detect.) Stl Norovirus GI/GII PCR Not Detected (Not Detect.) C. difficile Tox B Gene NEGATIVE (Negative) Influenza Type A (PCR) NEGATIVE (Negative) Influenza Type B (PCR) NEGATIVE (Negative) RSV RNA Qual (PCR) NEGATIVE (Negative) SARS-CoV-2 RNA (RT-PCR) NEGATIVE (Negative) Tests considered The following testing was considered but not selected: I considered obtaining a CT scan of the abdomen/pelvis however, the patient's current clinical presentation and work up did not warrant this. I discussed this with the patient who verbalized understanding and agreement. Discharge Plan Discharge Clinical Impression: Gastroenteritis Patient Disposition: Home, Self-Care Instructions: Gastroenteritis (DC), Acute Nausea and Vomiting (ED) Additional Instructions: Follow up with your primary care provider. Return to the emergency department immediately if your symptoms worsen or if you develop any dizziness, shortness of breath, difficulty breathing, chest pain, blurry vision, loss of vision, nausea, vomiting, abdominal pain, fever, chills, back pain, or any other complaints. Prescriptions: No Action ondansetron 4 mg tablet,disintegrating 4 mg PO Q8H PRN (Reason: nausea and vomiting) Qty: 7 0RF Referrals: [facility] [Provider Group] (Call to establish and follow up with a primary care provider. If you already have a primary care provider, please follow up with them.) [facility] Primary [facility], Emil [Provider Group] (Call to establish and follow up with a primary care provider. If you already have a primary care provider, please follow up with them.) [facility] Primary [facility],Debbie [Provider Group] (Call to establish and follow up with a primary care provider. If you already have a primary care provider, please follow up with them.) Stand Alone Forms: Work/School Release Interventions: ED Discharge Assessment Last Done: 09/06/24 09:25 Discharge Date/Time: 09/06/24 09:26 Print Language: Norwegian
[2024-09-06 06:53] LABS: Influenza A PCR NEGATIVE (Negative); Influenza B PCR NEGATIVE (Negative); Resp Syncy Virus RNA Qual PCR NEGATIVE (Negative); SARS COV2 PCR INHOUSE NEGATIVE (Negative)
[2024-09-06] MEDS: 0.9 % Sodium Chloride 1,000 ML 999 ML IV (07:15)
[2024-09-06] MEDS: Pantoprazole Sodium 40 MG/10 ML VIAL IVPUSH (07:15)
[2024-09-06] MEDS: ondansetron HCL 4 MG/2 ML VIAL IVPUSH (07:15)
[2024-09-06] MEDS: Magnesium Hydrox/Alum Hydrox 30 ML ORAL.SUSP 15 ML PO (07:16)
[2024-09-06 07:23] LABS: Appearance Urine Clear; Color Urine Yellow; Glucose Urine UA Negative (Negative); Leukocyte Esterase Urine Negative (Negative); Nitrite Urine Negative (Negative); PH 5.5 (5.0-9.0); Specific Gravity - Urine 1.025 (1.005-1.025); Urine Blood Negative (Negative); Urine Ketones Negative (Negative); Urine Protein Negative (Neg-Trace)
[2024-09-06 07:39] LABS: Magnesium 1.9 mg/dL (1.6-2.6)
[2024-09-06 08:00] VITALS: BP 130/78; PULSE 68; RESP 18; TEMP 36.6; O2SAT 95
[2024-09-06 08:36] LABS: CDiff Gene PCR NEGATIVE (Negative)
[2024-09-06 09:02] LABS: Adenovirus F 40/41 Not Detected (Not Detect.); Astrovirus Not Detected (Not Detect.); Campylobacter Not Detected (Not Detect.); Cryptosporidium Not Detected (Not Detect.); Cyclospora cayetanensis Not Detected (Not Detect.); E. coli EAEC Not Detected (Not Detect.); E. coli EPEC Not Detected (Not Detect.); E. coli ETEC Not Detected (Not Detect.); E. coli STEC Not Detected (Not Detect.); Entamoeba histolytica Not Detected (Not Detect.); Giardia lamblia Not Detected (Not Detect.); Norovirus GI/GII Not Detected (Not Detect.); Plesiomonas shigelloides Not Detected (Not Detect.); Rotavirus A Not Detected (Not Detect.); Salmonella Not Detected (Not Detect.); Sapovirus Not Detected (Not Detect.); Shigella sp./EIEC Not Detected (Not Detect.); Vibrio Not Detected (Not Detect.); Vibrio Cholerae Not Detected (Not Detect.); Yersinia enterocolitica Not Detected (Not Detect.)
[2024-09-06 09:25] VITALS: BP 137/86; PULSE 73; RESP 18; TEMP 36.6; O2SAT 97
== END 2024-09-06 09:26 | disposition home or self-care (01) ==
PROVIDERS: Physician Assistant Medical; Emergency Provider Student in an Organized Health Care Education/Training Program
DX: K52.9 Noninfective gastroenteritis and colitis, unspecified (principal); R11.2 Nausea with vomiting, unspecified; R10.13 Epigastric pain; Z03.818 Encounter for observation for suspected exposure to other biological agents ruled out
CPT/HCPCS: 0241U; 80053; 81003; 83735; 85025; 87493; 87507; 96374; 96375; 99284; J2405; J2470

== ENCOUNTER 2025-02-03 21:58 | Emergency (ER) | payer OTHER, SELFPAY ==
[2025-02-03 22:17] VITALS: BP 144/87; PULSE 86; RESP 18; TEMP 36.9; O2SAT 95; BMI 31.4
[2025-02-03 22:38] LABS: MANUAL DIFF FLAG NO
[2025-02-03 22:40] LABS: Basophils Absolute Auto 0.1 X10*3/uL (0.0-0.2); Basophils Percent Auto 0.8 % (0-2); Eosinophils Absolute Auto 0.2 X10*3/uL (0.0-0.4); Eosinophils Percent Auto 2.8 % (0-4); Hematocrit 46.5 % (42.0-52.0); Hemoglobin 16.6 g/dl (14.0-18.0); Imm Gran Abs Auto 0.01 X10*3/uL (0.00-0.03); Imm Gran Pct Auto 0.1 % (0.0-0.4); Lymphocytes Absolute Auto 2.1 X10*3/uL (1.2-4.9); Lymphocytes Percent Auto 24.7 % (20-40); Mean Corpuscular HGB Conc 35.7 g/dl (31.0-36.0); Mean Corpuscular Hemoglobin 29.1 pg (27.0-33.0); Mean Corpuscular Volume 81.6 fL (80.0-98.0); Mean Platelet Volume 9.6 fL (9.4-12.4); Monocytes Absolute Auto 0.9 X10*3/uL (0.1-1.2); Monocytes Percent Auto 10.4 % (2-11); Neutrophils Absolute Auto 5.2 x10*3/uL (2.0-8.3); Neutrophils Percent Auto 61.2 % (45-73); Platelet Count 220 X10*3/uL (160-400); Red Cell Distribution Width 12.2 % (11.0-16.0); White Blood Count 8.5 X10*3/uL (4.8-10.8)
[2025-02-03 22:47] LABS: IDNOW Serial# 55D5AD1C; Strep A Nucleic Acid Negative (Negative)
[2025-02-03 23:00] LABS: Alanine Aminotransferase 232 U/L (0-40); Alkaline Phosphatase 146 U/L (39-117); Anion Gap 13 (12-20); Aspartate Amino Transferase 97 U/L (5-37); Bilirubin Total 0.6 mg/dL (0.0-1.0); Blood Urea Nitrogen 10 mg/dL (9-16); Calcium 9.3 mg/dL (8.4-10.2); Carbon Dioxide 24 mmol/L (22-29); Chloride 107 mmol/L (96-108); Creatinine Clr Calc Pharmacy 178.4; Estimated Glomerular Filt Rate > 60; Glucose Random 108 mg/dL (60-115); Potassium 4.2 mmol/L (3.3-5.1); Sodium 140 mmol/L (135-145); Total Protein 7.7 g/dL (6.5-8.0)
[2025-02-03 23:17] LABS: Influenza A PCR NEGATIVE (Negative); Influenza B PCR NEGATIVE (Negative); Resp Syncy Virus RNA Qual PCR NEGATIVE (Negative); SARS COV2 PCR INHOUSE NEGATIVE (Negative)
[2025-02-04] MEDS: Ketorolac Tromethamine 15 MG/ML VIAL IVPUSH (00:39)
[2025-02-04] MEDS: dexAMETHasone sod phosphate 10 MG/ML VIAL IVPUSH (00:39)
[2025-02-04] MEDS: diphenhydrAMINE HCL 50 MG/ML VIAL 25 MG IVPUSH (00:39)
[2025-02-04] MEDS: Prochlorperazine Edisylate 10 MG/2 ML VIAL IVPUSH (00:40)
--- NOTE | 2025-02-04 01:10 | PC.NURSE ---
Assumed care of pt. Pt medicated pr OCT. IV placed 20g in R AC
[2025-02-04 01:12] VITALS: O2SAT 97
--- NOTE | 2025-02-04 02:18 | ED.GENADULT ---
HPI - General Adult General Chief complaint: Upper Respiratory Symptoms Stated complaint: sore throat, dizziness, headache, chest pain Time Seen by Provider: 02/03/25 23:04 Source: patient Limitations: no limitations History of Present Illness ED Provider: Kala Jacques PA-C HPI narrative: 29-year-old male presents with viral syndrome x2 days. Associated generalized myalgias, nasal congestion, dry cough, sore throat, postnasal drip fever and migraine. Associated photophobia and phonophobia. Denies neck pain. Related Data Previous Rx's ?Medication ?Instructions ?Recorded ondansetron 4 mg disintegrating 4 mg PO Q8H PRN nausea and 08/24/24 tablet vomiting #7 tabs Allergies Allergy/AdvReac Type Severity Reaction Status Date / Time No Known Allergies (No Known Allergy Verified 02/03/25 22:19 Allergies*) Review of Systems Review of Systems: Yes all other systems are reviewed and are negative Constitutional: Constitutional: Reports fatigue, Reports fever(s), Reports headache(s) and Reports malaise ENT: Reports headache(s), Reports nasal congestion, Denies neck pain, Reports post nasal drip and Reports sore throat Respiratory: Respiratory: Denies chest congestion and Reports cough Gastrointestinal: Gastrointestinal: Denies abdominal pain Musculoskeletal: Musculoskeletal: Denies neck pain Neurologic: Reports headache(s) Endocrine: Endocrine: Reports fatigue PMFSH Past Medical History Attestation statement: The following information was validated with the patient. Social History Social History Unable to assess alcohol history related to: Unknown Advance Directives: No Advance Directives Information Provided: No Physical Exam ED Vital Signs: Vital Signs - 24 hr 02/03/25 22:17 02/04/25 01:12 Temperature 98.4 F Pulse Rate 86 Respiratory Rate 18 Blood Pressure 144/87 H Pulse Oximetry 95 97 Oxygen Delivery Method Room Air Room Air BMI result Body Mass Index 31.4 Const Other: Alert Orientation/consciousness: patient oriented x3 HENMT Other: Oropharynx erythematous without exudate, uvula midline, no trismus no drooling no swelling inferior to the jawline no sublingual fluctuance Neck Neck: Yes full ROM and Yes no meningeal signs Resp Effort & Inspection: normal respiratory effort Cardio Other: Normal peripheral perfusion Skin Other: Warm dry no rash Neuro General: patient oriented x3, gait normal, no meningeal signs, no focal motor deficits and CN's II-XI intact bilaterally Psych Other: Cooperative Course Reevaluation(s) Reevaluation #1: Headache resolved he is eager for discharge Medications Administered Discontinued Medications Generic Name Dose Route Start Last Admin Trade Name Ruel PRN Reason Stop Dose Admin Dexamethasone Sodium Phosphate 10 mg 02/04/25 00:23 02/04/25 00:39 Dexamethasone Sod Phosphate 10 Mg/Ml Vial IVPUSH 02/04/25 00:24 10 mg ONCE ONE Administration Diphenhydramine HCl 25 mg 02/04/25 00:23 02/04/25 00:39 Diphenhydramine Hcl 50 Mg/Ml Vial IVPUSH 02/04/25 00:24 25 mg ONCE ONE Administration Ketorolac Tromethamine 15 mg 02/04/25 00:23 02/04/25 00:39 Ketorolac Tromethamine 15 Mg/Ml Vial IVPUSH 02/04/25 00:24 15 mg ONCE ONE Administration Prochlorperazine Edisylate 10 mg 02/04/25 00:23 02/04/25 00:40 Prochlorperazine Edisylate 10 Mg/2 Ml Vial IVPUSH 02/04/25 00:24 10 mg ONCE ONE Administration Medical Decision Making Medical Decision Making MDM Narrative: 29-year-old male presents with viral syndrome x2 days. Associated generalized myalgias, nasal congestion, dry cough, sore throat, postnasal drip fever and migraine. Associated photophobia and phonophobia. Denies neck pain. Problem: Migraine History: Per patient I have considered the following differential diagnoses: Viral syndrome, strep pharyngitis, RPA, [employer], meningitis, migraine headache Plan: Screening labs including viral panel and strep screen were ordered from triage, everything is negative. There were no exam findings consistent with RPA or [employer]. The patient also has no meningeal signs. He is actively seeking treatment for his migraine. We will order a migraine cocktail. I have independently reviewed the following tests: Labs: No leukocytosis, not anemic, no electrolyte abnormality, viral panel negative, strep screen negative Lab Data 02/03/25 22:33 02/03/25 22:33 Labs: Lab Results 02/03/25 Range/Units 22:33 WBC 8.5 (4.8-10.8) X10*3/uL RBC 5.70 (4.60-5.80) X10*6/uL Hgb 16.6 (14.0-18.0) g/dl Hct 46.5 (42.0-52.0) % MCV 81.6 (80.0-98.0) fL MCH 29.1 (27.0-33.0) pg MCHC 35.7 (31.0-36.0) g/dl RDW 12.2 (11.0-16.0) % Plt Count 220 (160-400) X10*3/uL MPV 9.6 (9.4-12.4) fL Immature Gran % (Auto) 0.1 (0.0-0.4) % Neut % (Auto) 61.2 (45-73) % Lymph % (Auto) 24.7 (20-40) % [place] % (Auto) 10.4 (2-11) % Eos % (Auto) 2.8 (0-4) % Baso % (Auto) 0.8 (0-2) % Lymph # (Auto) 2.1 (1.2-4.9) X10*3/uL [place] # (Auto) 0.9 (0.1-1.2) X10*3/uL Eos # (Auto) 0.2 (0.0-0.4) X10*3/uL Baso # (Auto) 0.1 (0.0-0.2) X10*3/uL Abs Immat Gran (auto) 0.01 (0.00-0.03) X10*3/uL Absolute Neuts (auto) 5.2 (2.0-8.3) x10*3/uL Absolute Nucleated RBC 0.000 (0.0-0.012) X10*3/uL Nucleated RBC % (auto) 0.0 (0.0-0.2) /100WBC Sodium 140 (135-145) mmol/L Potassium 4.2 (3.3-5.1) mmol/L Chloride 107 (96-108) mmol/L Carbon Dioxide 24 (22-29) mmol/L Anion Gap 13 (12-20) BUN 10 (9-16) mg/dL Creatinine 0.81 (0.5-1.4) mg/dL Estim Creat Clear Calc 178.4 Estimated GFR > 60 Random Glucose 108 (60-115) mg/dL Calcium 9.3 D (8.4-10.2) mg/dL Total Bilirubin 0.6 (0.0-1.0) mg/dL AST 97 H (5-37) U/L ALT 232 H (0-40) U/L Alkaline Phosphatase 146 H (39-117) U/L Total Protein 7.7 (6.5-8.0) g/dL Albumin 5.0 (3.5-5.0) g/dL Influenza Type A (PCR) NEGATIVE (Negative) Influenza Type B (PCR) NEGATIVE (Negative) RSV RNA Qual (PCR) NEGATIVE (Negative) SARS-CoV-2 RNA (RT-PCR) NEGATIVE (Negative) S. pyogenes GrpA CONOR Negative (Negative) Discharge Plan Discharge Clinical Impression: Viral infection, Migraine Patient Disposition: Home, Self-Care Instructions: Migraine Headache (ED), Viral Syndrome (ED) Additional Instructions: All of your screening labs including a viral panel and strep throat screen were negative. You have yet another virus causing your symptoms. You were also treated for a migraine type headache that resolved with a migraine cocktail. Follow up with your primary care provider as needed. Prescriptions: No Action ondansetron 4 mg tablet,disintegrating 4 mg PO Q8H PRN (Reason: nausea and vomiting) Qty: 7 0RF Interventions: ED Discharge Assessment Last Done: 02/04/25 02:33 Discharge Date/Time: 02/04/25 02:40 Print Language: Japanese
[2025-02-04 02:21] VITALS: BP 128/76; PULSE 75; RESP 16; TEMP 36.6; O2SAT 96
[2025-02-04 02:33] VITALS: BP 128/76; PULSE 75; RESP 16; TEMP 36.6; O2SAT 96
== END 2025-02-04 02:40 | disposition home or self-care (01) ==
PROVIDERS: Emergency Provider Emergency Medicine Emergency Medical Services
DX: B34.9 Viral infection, unspecified (principal); G43.909 Migraine, unspecified, not intractable, without status migrainosus; J02.9 Acute pharyngitis, unspecified; R42 Dizziness and giddiness; R07.89 Other chest pain; M79.10 Myalgia, unspecified site; R05.9 Cough, unspecified; Z03.818 Encounter for observation for suspected exposure to other biological agents ruled out; Z79.899 Other long term (current) drug therapy
CPT/HCPCS: 0241U; 80053; 85025; 87651; 96374; 96375; 99284; J0737; J1100; J1200; J1885